=== PATIENT | female | born 1950 | race African-American/Black ===

== ENCOUNTER → 2020-12-11 | Outpatient (CLI) | payer OTHER ==
[2016-04-02 12:04] VITALS: BP 223/92
--- NOTE | 2020-12-11 12:39 | KCIC ---
EXAM: Chest, 2 views. HISTORY: Wheezing. COMPARISON: None. FINDINGS: 2 views of the chest are obtained. There is mild central interstitial prominence without fr ank congestion or consolidated infiltrate. There is cardiomegaly. There is no pleural effusion or pne umothorax. IMPRESSION: Cardiomegaly. Electronically signed by: Janet Harley MD (12/11/2020 12:36 PM) [id number]
== END ==
LOC: KCIC 10:35
PROVIDERS: ATTEND Family Medicine
DX: I51.7 Cardiomegaly (principal); R06.2 Wheezing
CPT/HCPCS: 71046

== ENCOUNTER → 2020-12-18 | Outpatient (CLI) | payer OTHER ==
[2016-04-02 12:04] VITALS: BP 223/92
--- NOTE | 2020-12-18 14:17 | KCIC ---
Bilateral digital screening mammograms: Reason for examination: Routine screening. Comparison is made to previous studies dated 04/24/2015 and 04/09/2013. Interpretation is made with the benefit of CAD. The skin and nipples show no abnormalities. No abnormal lymph nodes are seen. The breast parenchyma i s predominantly fatty. (Breast density: Category A.) There are some clustered calcifications seen pos terior medially in the left breast seen on cc view only. Further evaluation with coned compression ma gnification views in CC and true lateral projections is recommended. There are no other dominant mass es, suspicious calcifications or architectural distortions. Impression: Calcifications seen posterior medially in the left breast on cc view only. Recommend further evaluati on with coned compression magnification views in CC and true lateral projections. BI-RADS Category 0: Incomplete. Needs additional imaging evaluation. "Our facility is accredited by the [employer] Mammography [employer]." This patient's information has been entered into a reminder system for the patient to be notified wit h the results of her examination and a target date for the next mammogram. Electronically signed by: Lamar Henderson MD (12/18/2020 2:14 PM) [email or web address]
== END ==
LOC: KCIC MAMMO 10:10
PROVIDERS: ATTEND Family Medicine
DX: Z12.31 Encounter for screening mammogram for malignant neoplasm of breast (principal)
CPT/HCPCS: 77067

== ENCOUNTER → 2020-12-31 | Outpatient (CLI) | payer OTHER ==
[2016-04-02 12:04] VITALS: BP 223/92
--- NOTE | 2020-12-31 14:18 | KCIC ---
Left breast diagnostic digital mammograms: Reason for examination: Calcifications on screening mammogram. Comparison is made to mammographic exam dated 12/18/2020. True lateral view of the left breast and cone compression magnification views in CC and oblique proje ctions were obtained of the left breast. A cluster of calcifications is present in the left breast in the central 9:00 position 12 cm from the nipple. Further evaluation with stereotactic biopsy is recommended. IMPRESSION: Clustered calcifications in the central 9:00 position of the left breast 12 cm from the nipple. Furth er evaluation with stereotactic biopsy is recommended. BI-RADS Category 4: Suspicious. These findings have been discussed with the patient and the medical transport specialist for Dr. Patterson was notifi ed about these findings by voicemail on 12/31/2020 at 1415. "Our facility is accredited by the [employer]ammography [employer]." This patient's information has been entered into a reminder system for the patient to be notified wit h the results of her examination and a target date for the next mammogram. Electronically signed by: Lamar Henderson MD (12/31/2020 2:15 PM) [email or web address]
== END ==
LOC: KCIC MAMMO 12:55
PROVIDERS: ATTEND Family Medicine
DX: R92.1 Mammographic calcification found on diagnostic imaging of breast (principal)
CPT/HCPCS: 77065

== ENCOUNTER → 2021-02-03 | Outpatient (CLI) | payer OTHER ==
[2016-04-02 12:04] VITALS: BP 223/92
--- NOTE | 2021-02-03 17:51 | KCIC ---
Procedure: Targeted left breast ultrasound INDICATION: Mammogram shows a cluster of calcifications in the central/9:00 position of the left diane st at posterior depth. Patient has declined biopsy at this time. The area of interest on mammogram, central to 9:00 region of the left breast was evaluated. The axill a was imaged. No suspicious breast mass is seen. The no areas of abnormal shadowing identified in the area of group ed calcifications seen on mammogram. There is no left axillary adenopathy. IMPRESSION: No sonographic correlate is seen for the grouped calcifications in the central/9:00 posit ion of the left breast at posterior depth on mammogram. The calcifications remain of concern. Stereotactically guided biopsy is recommended. Results were discussed the patient on the phone by myself and the stereotactic biopsy procedure was e xplained to her. She will notify us if she agrees to stereotactic biopsy. ASSESSMENT: BI-RADS 4. Suspicious for possible malignancy. RECOMMENDATION: Stereotactic guided biopsy of the left breast. If stereotactically guided biopsy is not elected at this time, six-month follow-up of diagnostic left mammogram is recommended Electronically signed by: Batsheva Massey MD (02/03/2021 5:49 PM) [email or web address]
== END ==
LOC: KCIC US 12:54
PROVIDERS: ATTEND Family Medicine
DX: R92.8 Other abnormal and inconclusive findings on diagnostic imaging of breast (principal)
CPT/HCPCS: 76641

== ENCOUNTER → 2021-05-20 | Outpatient (CLI) | payer OTHER ==
[2016-04-02 12:04] VITALS: BP 223/92
[~2021-05-20] MED LIST: LIDOCAINE 1% Multi-Dose 20 ML VIAL. INJ ONE; LIDOCAINE 1% Multi-Dose 20 ML VIAL. ONE; LIDOCAINE 2%/EPI 1:100,000 20 ML VIAL. INJ ONE
--- NOTE | 2021-05-20 14:03 | RAD ---
EXAM: Stereotactic left breast biopsy; specimen radiograph; post-biopsy clip placement; unilateral po st-biopsy mammogram. HISTORY: 70-year-old female presents for stereotactic biopsy of microcalcifications within the left b reast demonstrated on a mammogram performed 12/31/2020. TECHNIQUE AND FINDINGS: The procedure and its risks and benefits were discussed with the patient. Ris ks discussed included, but were not limited to, pain, infection, bleeding and need for repeat biopsy. The patient provided verbal and written consent. A timeout was performed. The patient's left breast was placed in craniocaudal compression.Images were obtained and the calcifi cations of interest were localized using stereotaxis. The skin overlying this region was then sterile ly prepped and infiltrated with a few cc 1% lidocaine for local anesthesia. Deeper soft tissue anesth esia was administered with epinephrine in 1% lidocaine. A small skin incision was made and the biopsy device was advanced and appropriate positioning was confirmed with additional images. Subsequently, multiple core biopsy samples were obtained with vacuum assistance. A plain radiograph o f the specimen was obtained, demonstrating inclusion of clustered calcifications. Then, a post-biospy clip was advanced to the site of biopsy using the same guidance technique. A sterile bandage was pl aced, and the patient was transferred to the mammography suite for craniocaudal and mediolateral obli que views. The mammogram was interpreted at a separate workstation. This demonstrates the biopsy clip anterior and superior to the initial calcifications of interest. Therefore, the patient's left breast was repositioned in the mediolateral projection and additional i mages were obtained to localize additional calcifications of concern. Using the same technique, multi ple core samples of the calcifications were obtained. A specimen radiograph demonstrates inclusion of calcifications of interest. A second biopsy clip was placed. A postbiopsy mammogram was obtained and interpreted separate workstation. The post plasty mammogram d emonstrates the second biopsy clip several centimeters medial to the biopsy bed. The difference in bi opsy clip positioning compared to the biopsy bed cyst likely due to clip migration within significant redundant breast tissue following removal of the breast from compression. Given inclusion of significant calcifications of interest within the specimens, the biopsy was comple amparo and specimens were submitted for analysis. The patient tolerated the procedure without difficulty and was discharged to home in stable condition with post-biospy care instructions. IMPRESSION: 1. Stereotactic biospy of clustered microcalcifications within the posterior 9:00 position of the lef t breast. Note is made that two separate attempts to include the microcalcifications of interest were performed, with successful inclusion of calcifications of interest within the biopsy specimen. Howev er, there was significant biopsy clip migration from the biopsy bed on both attempts. This is due to breast parenchymal redundancy following decompression. If needle localization for surgical excision o r lumpectomy is indicated based on pathology results, localization of the residual calcifications wit hin the biopsy bed rather than targeted to the biopsy clips should be performed. 2. An addendum to this report will be submitted when pathology results are available. Electronically signed by: Janet Harley MD (05/20/2021 2:01 PM) [id number]
--- NOTE | 2021-05-21 18:11 | PATHOLOGY ---
[facility] Accession Number: [id number] . 01 Material submitted: . PART A: breast - LEFT BREAST STEREOTACTIC. Modifiers: left PART B: breast - LEFT BREAST CALCIFICATIONS. Modifiers: left . 02 Diagnosis: A. Breast tissue, left breast stereotactic biopsy #1: - Fatty atrophic breast tissue showing focal mild stromal fibrosis and rare microcalcification. . B. 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 SEE COMMENT. - Fatty atrophic breast tissue showing focal mild stromal fibrosis. LBQ 05/21/2021 1658 Local . 02 Comment: Sections of the left breast stereotactic biopsy #2 reveal one and perhaps two foci of ductal carcinoma in situ, low to intermediate grade, cribriform and micropapillary type. The largest focus measures 3 mm in greatest dimension. There are associated calcifications. There is no evidence of invasive carcinoma. Breast prognostic studies (ER and AK) will be obtained on B3, the results of which will be reported separately. The case is also examined by Dr. Gage, who concurs with the diagnosis on 05/21/21. (JPM/db; 05/21/2021) . 02 Electronically signed: . Toro Walden MD, Pathologist NPI- [id number] . 01 Gross description: . A. The specimen is received in formalin, labeled "Leslie Farris, left breast calcifications". Received within a plastic cassette are multiple needle cores of fibrofatty tissue measuring 2.6 x 2.6 x 0.6 cm in aggregate dimensions. The specimen is transferred and entirely submitted in cassettes A1 through A3. The cold ischemic time is 9 minutes. The total formalin fixation time is 10 hours and 36 minutes. . B. The specimen is received in formalin, labeled "Leslie Farris, left breast tissue". Received within a plastic cassette are multiple needle cores of fibrofatty tissue measuring 3.2 x 2.6 x 0.6 cm in aggregate dimensions. The specimen is transferred and entirely submitted in cassettes B1 through B3. The cold ischemic time is 10 minutes. The total formalin fixation time is 9 hours. (CAA; 05/20/2021) QAC/QAC 05/21/2021 [facility] Local . 02 Pathologist provided ICD-10: N60.32, D05.12, N64.89 . 02 CPT . 502001, 577071 Specimen Comment: A courtesy copy of this report has been sent to [phone], [phone] Specimen Comment: [id number], Specimen Comment: Report sent to , DR NEVILLE / DR ORTEGA Specimen Comment: A duplicate report has been generated due to demographic updates. Performed at: 01 [facility] [address], [place] [id number] MD Osito Vilchis MD Phone: [phone] Performed at: 02 [facility] [address], [place] [id number] MD Toro Walden MD Phone: [phone]
== END | disposition home or self-care (01) ==
LOC: MAMMO 08:53
PROVIDERS: ATTEND Surgery
DX: R92.8 Other abnormal and inconclusive findings on diagnostic imaging of breast (principal); N60.32 Fibrosclerosis of left breast; N64.89 Other specified disorders of breast; D05.12 Intraductal carcinoma in situ of left breast
CPT/HCPCS: 19081; 19082; 77065; J3490

== ENCOUNTER → 2021-06-26 | Outpatient (CLI) | payer OTHER ==
[2016-04-02 12:04] VITALS: BP 223/92
[~2021-06-26] MED LIST changes: +AMLO-187 PO; +ATOR20TA58 PO; +EMPA10TA3 PO; +FURO20TA3 PO; +HYDR-2761 PO; +HYDR100T24 PO; -LIDOCAINE 1% Multi-Dose 20 ML VIAL. INJ ONE; -LIDOCAINE 1% Multi-Dose 20 ML VIAL. ONE; -LIDOCAINE 2%/EPI 1:100,000 20 ML VIAL. INJ ONE; +SPIR25TA5 PO; +VENTOLIN HFA18 GM INH
== END ==
LOC: LAB 13:08
PROVIDERS: ATTEND Surgery
DX: Z01.812 Encounter for preprocedural laboratory examination (principal); Z20.822 Contact with and (suspected) exposure to COVID-19
CPT/HCPCS: U0003

== ENCOUNTER 2021-06-29 07:16 | Observation (INO) | payer OTHER ==
[~2021-06-29] VITALS: Ht 165.1 cm; Wt 105.0 kg
[2021-06-29] VITALS (9 sets, daily range): BP systolic 116–127; BP diastolic 48–70
[~2021-06-29 07:16] MED LIST changes: -HYDR-2761 PO; +HYDROmorphone 2 MG/ML INJ. IVP PRN; +IV RINGERS,LACTATED 1000ML 1,000 ML IV SCH; +MORPHINE SULFATE 2 MG/ML INJ. IVP PRN; +PROCHLORPERAZINE 10 MG/2 ML VIAL. IVP PRN; +fentaNYL PF VIAL 100 MCG/2 ML VIAL IVP PRN
[2021-06-29] MEDS ORDERED: INSULIN LISPRO 100 UNIT/ML 3ML VIAL for OP,RR ONLY. SQ PRN (08:00)
[2021-06-29] MEDS ORDERED: DEXMEDETOMIDINE 200 MCG/2 ML VIAL. IV ONE (08:15)
[2021-06-29 08:28] LABS: CALCIUM 10.6 mg/dL (8.5-10.1); GFR 29.7; POTASSIUM 3.9 mmol/L (3.5-5.1)
[2021-06-29] MEDS ORDERED: ROCURONIUM 50 MG/5 ML VIAL. ONE (08:28)
[2021-06-29] MEDS ORDERED: fentaNYL PF VIAL 100 MCG/2 ML VIAL ONE (08:29)
[2021-06-29] MEDS ORDERED: PROPOFOL 10 MG/ML (20ML) VIAL. IV ONE (08:30)
[2021-06-29] MEDS ORDERED: GLYCOPYRROLATE 1 MG/5 ML VIAL. ONE (08:30)
[2021-06-29] MEDS ORDERED: NEOSTIGMINE METHYLSULFATE 5 MG/5 ML SYRINGE. ONE (08:30)
[2021-06-29] MEDS ORDERED: LIDOCAINE 2% PF 5 ML VIAL. ONE (08:30)
[2021-06-29] MEDS ORDERED: FAMOTIDINE 20 MG/2 ML VIAL ONE (08:31)
[2021-06-29] MEDS ORDERED: ONDANSETRON PF 4 MG/2 ML VIAL. ONE (08:31)
[2021-06-29] MEDS ORDERED: DEXAMETHASONE SOD PHOS 4 MG/ML VIAL ONE (08:31)
[2021-06-29] MEDS ORDERED: SEVOFLURANE 61 TO 120 MINUTES. IH ONE (08:58)
--- NOTE | 2021-06-29 09:05 | RAD ---
EXAM: Left breast lymphoscintigraphy. HISTORY: 71-year-old female with a history of left breast ductal carcinoma in situ presents for senti liudmila node injection prior to mastectomy and lymph node dissection. TECHNIQUE: The risks of the procedure discussed with the patient and written and verbal consent was o btained. A timeout was performed. The skin of the anterior left breast was sterilely prepped and 1.0 mCi technetium 99m lymphoseek was injected intradermally in a periareolar distribution. No images wer e obtained. IMPRESSION: Left breast lymphoscintigraphy for sentinel node biopsy. Electronically signed by: Janet Harley MD (06/29/2021 9:03 AM) [id number]
[2021-06-29] MEDS ORDERED: ISOSULFAN BLUE 1% 50 MG/5 ML VIAL. SQ ONE (10:10)
[2021-06-29] MEDS ORDERED: CEFAZOLIN 2 GM IV ONE (10:24)
[2021-06-29] MEDS ORDERED: 0.9 % SODIUM CHLORIDE 10 ML DISP.SYRIN. IV PRN (12:45)
[2021-06-29] MEDS ORDERED: NALOXONE 0.4 MG/ML VIAL. IV PRN (12:45)
[2021-06-29] MEDS ORDERED: ONDANSETRON PF 4 MG/2 ML VIAL. IVP PRN (12:45)
[2021-06-29] MEDS ORDERED: IV NORMAL SALINE 1000ML BAG 1,000 ML IV SCH (12:45)
[2021-06-29] MEDS ORDERED: HYDROmorphone 2 MG/ML INJ. IV PRN (12:45)
[2021-06-29] MEDS ORDERED: HYDROcodone/APAP 5/325MG 1 TAB TABLET PO PRN ×2 (12:45)
--- NOTE | 2021-06-29 12:50 | PDOC4 ---
Operative Note Operative Note Operative Note: Preoperative Diagnosis: Left breast ductal carcinoma in situ Postoperative Diagnosis: Same Procedure: Left simple mastectomy, sentinel lymph node biopsy Surgeon: Dhruv Security Intern: Les Cullen MS 4 Anesthesia: General EBL: 75 mL Specimen: Left breast stitch at 12:00 to pathology, left axillary sentinel lymph node to pathology Drains: 19 [place] SYDNEE drain to left chest wall Complications: None Indication: The patient is a 71-year-old female who was recently found on a core needle biopsy to have ductal carcinoma in situ of left breast. She will require definitive surgical treatment. In reviewing options she strongly prefers a complete mastectomy. We plan to incorporate a sentinel lymph node. The risks of surgery were discussed which include bleeding, infection, wound healing problems, pain, scar tissue, anesthetic risk, potential need for additional surgery procedure. She understands and would like to proceed. Description: The patient initially went to x-ray where she underwent injection of technetium sulfur colloid. She was then taken to the operating room and placed supine on the operating table. General anesthesia was performed. The left breast and axilla were prepped with ChloraPrep and draped in a standard surgical manner. 5 mL of Lymphazurin were injected deep to the nipple areolar complex. Several minutes were allowed to elapse. An elliptical tracing was made around the nipple areolar complex extending from the medial chest to the axilla. With a scalpel an incision was made along the superior tracing. Beginning in the lateral aspect we directed the dissection toward the axillary tissues. There was no marked nuclear uptake that was identified. There was however a blue staining lymph node that was seen. This was harvested from the surrounding tissues and sent to pathology. Frozen section showed no evidence of metastatic disease. We then proceeded with the mastectomy. We extended the incision along the elliptical tracing. The superior flap was developed initially the skin from the breast parenchyma. The dissection was carried to the level just below the clavicle. In a similar manner the inferior flap was developed and the dissection included the inframammary fold. In a medial to lateral fashion the breast was taken off of the chest wall with cautery. Several small blood vessels were readily controlled with cautery. The breast was then fully excised and marked with a silk suture at the 12 o'clock position. Specimen was then sent to pathology. Hemostasis was good. The subcutaneous tissue was approximated with 3-0 Vicryl. The skin was closed with 4 Monocryl and a sterile dressing was applied. The patient tolerated the procedure well and was sent to the recovery room in stable condition. At the end of the case all counts were correct. MANUELA SAWANT MD Jun 29, 2021 12:50
[2021-06-29] MEDS: IV 1/2 NORMAL SALINE 1,000 ML IV SCH ×2 (13:51→22:45)
[2021-06-29] MEDS: FUROSEMIDE 20 MG TABLET PO SCH (14:00)
--- NOTE | 2021-06-29 14:15 | NUR ---
received from recovery. metallurgical specialist strength are equal and strong. she has good sensation motion and pulses bilateral arms. dressing to left breast and the Left axilla is clean dry and intact. SYDNEE drain emptied of serosanguineous drainage. denies need for pain med at this time.
[2021-06-29] MEDS ORDERED: ATORVASTATIN CALCIUM 20 MG TABLET PO SCH (21:00)
[2021-06-30 03:00] VITALS: BP 129/58
[2021-06-30] MEDS ORDERED: EMPAGLIFLOZIN 10 MG TABLET. PO SCH (06:00)
[2021-06-30 06:50] VITALS: BP 137/54
[2021-06-30] MEDS: IV 1/2 NORMAL SALINE 1,000 ML IV SCH (08:45)
[2021-06-30] MEDS: FUROSEMIDE 20 MG TABLET PO SCH ×2 (08:52→13:32)
[2021-06-30 08:53] VITALS: BP 125/51
[2021-06-30] MEDS ORDERED: SPIRONOLACTONE 25 MG TABLET PO SCH (09:00)
--- NOTE | 2021-06-30 10:00 | NUR ---
Doing well this am. Anxious to go home today. Demonstrated pt how to empty SYDNEE drain. Verbalized understanding. Cont. monitored.
[2021-06-30 12:32] VITALS: BP 133/58
--- NOTE | 2021-06-30 12:44 | PDOC ---
PROGRESS NOTES Date of Service DATE: 06/30/21 TIME: 12:43 Subjective Subjective doing well Objective Objective Vital Signs Date Time Temp Pulse Resp B/P (MAP) Pulse Ox O2 Delivery O2 Flow Rate FiO2 06/30/21 12:32 98.7 58 20 133/58 (83) Room Air 98.7 06/30/21 06:50 89 06/29/21 13:28 10 Intake and Output 06/30/21 07:00 Intake Total 1520 ml Output Total 975 ml Balance 545 ml Intake Oral 420 ml IV Total 1100 ml Output Urine Total 550 ml Drainage Total 350 ml Estimated Blood Loss 75 ml Physical Exam Physical Exam dressing clean and dry, drain with serosang fluid Plan Plan of Care Discharge Comment Review of Relevant I have reviewed the following items marcus (where applicable) has been applied. Labs Laboratory Tests Test 06/29/21 07:30 06/29/21 07:55 06/29/21 08:18 06/29/21 13:01 POC SARS CoV-2 Antigen Negative (NEGATIVE) Sodium Level 136 mmol/L (136-145) Potassium Level 3.9 mmol/L (3.5-5.1) Chloride Level 97 mmol/L (98-107) Carbon Dioxide Level 23 mmol/L (21-32) Anion Gap 16 (6-14) Blood Urea Nitrogen 36 mg/dL (7-20) Creatinine 2.0 mg/dL (0.6-1.0) Estimated GFR (Cockcroft-Gault) 29.7 Glucose Level 97 mg/dL (70-99) Calcium Level 10.6 mg/dL (8.5-10.1) Glucose (Fingerstick) 95 mg/dL (70-99) 87 mg/dL (70-99) Test 06/29/21 16:45 06/29/21 20:10 06/30/21 06:37 06/30/21 12:36 Glucose (Fingerstick) 143 mg/dL (70-99) 183 mg/dL (70-99) 154 mg/dL (70-99) 152 mg/dL (70-99) Laboratory Tests Test 06/29/21 13:01 06/29/21 16:45 06/29/21 20:10 06/30/21 06:37 Glucose (Fingerstick) 87 mg/dL (70-99) 143 mg/dL (70-99) 183 mg/dL (70-99) 154 mg/dL (70-99) Test 06/30/21 12:36 Glucose (Fingerstick) 152 mg/dL (70-99) Medications Current Medications Fentanyl Citrate (Fentanyl 2ml Vial) 25 mcg PRN Q5MIN PRN IVP MILD PAIN 1-3; Start 06/29/21 at 06:00; Stop 06/30/21 at 05:59; Status DC Fentanyl Citrate (Fentanyl 2ml Vial) 50 mcg PRN Q5MIN PRN IVP MODERATE PAIN 4- 6; Start 06/29/21 at 06:00; Stop 06/30/21 at 05:59; Status DC Morphine Sulfate (Morphine Sulfate) 1 mg PRN Q10MIN PRN IVP SEVERE PAIN 7-10; Start 06/29/21 at 06:00; Stop 06/30/21 at 05:59; Status DC Ringer's Solution 1,000 ml @ 30 mls/hr Q24H IV Last administered on 06/29/21at 06:00; Start 06/29/21 at 06:00; Stop 06/29/21 at 17:59; Status DC Hydromorphone HCl (Dilaudid) 0.5 mg PRN Q10MIN PRN IVP SEVERE PAIN 7-10, 2nd CHOICE; Start 06/29/21 at 06:00; Stop 06/30/21 at 05:59; Status DC Prochlorperazine Edisylate (Compazine) 5 mg PACU PRN PRN IVP NAUSEA, MRX1; Start 06/29/21 at 06:00; Stop 06/30/21 at 05:59; Status DC Cefazolin Sodium/ Dextrose 50 ml @ 100 mls/hr 1X PREOP PRN IV PRIOR TO P ROCEDURE; Start 06/29/21 at 06:00; Stop 06/29/21 at 18:00; Status DC Insulin Human Lispro (HumaLOG VIAL for OP,RR ONLY) 0-10 units PRN Q1HR PRN SQ PER PROTOCOL; Start 06/29/21 at 08:00; Stop 06/30/21 at 07:59; Status DC Dexmedetomidine HCl (Precedex) 200 mcg 1X ONCE IV ; Start 06/29/21 at 08:15; Stop 06/29/21 at 08:16; Status DC Rocuronium [place] (Zemuron) 50 mg STK-MED ONCE .ROUTE ; Start 06/29/21 at 08:28; Stop 06/29/21 at 08:29; Status DC Fentanyl Citrate (Fentanyl 2ml Vial) 100 mcg STK-MED ONCE .ROUTE ; Start 06/29/21 at 08:29; Stop 06/29/21 at 08:29; Status DC Neostigmine [place] (Neostigmine Methylsulfate) 5 mg STK-MED ONCE .ROUTE ; Start 06/29/21 at 08:30; Stop 06/29/21 at 08:30; Status DC Glycopyrrolate (Robinul) 1 mg STK-MED ONCE .ROUTE ; Start 06/29/21 at 08:30; Stop 06/29/21 at 08:30; Status DC Propofol (Diprivan) 200 mg STK-MED ONCE IV ; Start 06/29/21 at 08:30; Stop 06/29/21 at 08:31; Status DC Lidocaine HCl (Lidocaine Pf 2% Vial) 5 ml STK-MED ONCE .ROUTE ; Start 06/29/21 at 08:30; Stop 06/29/21 at 08:31; Status DC Ondansetron HCl (Zofran) 4 mg STK-MED ONCE .ROUTE ; Start 06/29/21 at 08:31; Stop 06/29/21 at 08:31; Status DC Famotidine (Pepcid Vial) 20 mg STK-MED ONCE .ROUTE ; Start 06/29/21 at 08:31; Stop 06/29/21 at 08:31; Status DC Dexamethasone Sodium Phosphate (Decadron) 4 mg STK-MED ONCE .ROUTE ; Start 06/29/21 at 08:31; Stop 06/29/21 at 08:31; Status DC Sevoflurane (Ultane) 60 ml STK-MED ONCE IH ; Start 06/29/21 at 08:58; Stop 06/29/21 at 08:58; Status DC Isosulfan Blue (Lymphazurin Blue) 50 mg STK-MED ONCE SQ Last administered on 06/29/21at 11:08; Start 06/29/21 at 10:10; Stop 06/29/21 at 10:11; Status DC Cefazolin Sodium/ Dextrose 100 ml @ As Directed STK-MED ONCE IV ; Start 06/29/21 at 10:24; Stop 06/29/21 at 10:24; Status DC Sodium Chloride (Normal Saline Flush) 3 ml QSHIFT PRN IV AFTER MEDS AND BLOOD DRAWS; Start 06/29/21 at 12:45 Sodium Chloride 1,000 ml @ 100 mls/hr Q10H IV Last administered on 06/29/21at 13:51; Start 06/29/21 at 12:45 Acetaminophen/ Hydrocodone Bitart (Lortab 5/325) 1 tab PRN Q4HRS PRN PO MILD PAIN 1-3; Start 06/29/21 at 12:45 Acetaminophen/ Hydrocodone Bitart (Lortab 5/325) 2 tab PRN Q4HRS PRN PO MODERATE PAIN, SEVERE PAIN; Start 06/29/21 at 12:45 Naloxone HCl (Narcan) 0.4 mg PRN Q2MIN PRN IV SEE INSTRUCTIONS; Start 06/29/21 at 12:45 Sodium Chloride 1,000 ml @ 25 mls/hr Q24H IV ; Start 06/29/21 at 12:45; Stop 06/30/21 at 02:07; Status DC Hydromorphone HCl (Dilaudid) 0.2 mg PRN Q1HR PRN IV PAIN Last administered on 06/29/21at 16:41; Start 06/29/21 at 12:45 Ondansetron HCl (Zofran) 4 mg PRN Q6HRS PRN IVP NAUESA, 1ST CHOICE; Start 06/29/21 at 12:45 Amlodipine Besylate (Norvasc) 10 mg DAILY PO ; Start 06/30/21 at 09:00 Atorvastatin Calcium (Lipitor) 20 mg HS PO Last administered on 06/29/21at 21:43; Start 06/29/21 at 21:00 Empaglifozin (Jardiance) 10 mg DAILY06 PO Last administered on 06/30/21at 08:49; Start 06/30/21 at 06:00 Furosemide (Lasix) 20 mg BID92 PO Last administered on 06/30/21at 08:52; Start 06/29/21 at 14:00 Spironolactone (Aldactone) 25 mg DAILY PO Last administered on 06/30/21at 08:50; Start 06/30/21 at 09:00 Hydralazine HCl (Apresoline) 100 mg TID PO Last administered on 06/30/21at 08:52; Start 06/29/21 at 14:00 Active Scripts Active Reported Ventolin Hfa Inhaler (Albuterol Sulfate) 18 Gm Hfa.aer.ad 2 Puff INH Q4HRS PRN Amlodipine Besylate 10 Mg Tablet 10 Mg PO DAILY Hydralazine Hcl 100 Mg Tablet 1 Tab PO TID Jardiance (Empaglifozin) 10 Mg Tablet 10 Mg PO DAILY06 Furosemide 20 Mg Tablet 20 Mg PO BID Atorvastatin Calcium 20 Mg Tablet 20 Mg PO HS Spironolactone 25 Mg Tablet 1 Tab PO DAILY Vitals/I & O Vital Sign - Last 24 Hours 06/29/21 06/29/21 06/29/21 06/29/21 12:58 13:13 13:28 13:43 Pulse 67 65 67 69 Resp 20 20 20 20 B/P (MAP) 119/56 116/60 112/45 117/52 Pulse Ox 100 100 100 91 O2 Delivery Simple Mask Simple Mask Room Air O2 Flow Rate 10 10 10 06/29/21 06/29/21 06/29/21 06/29/21 13:58 14:00 14:15 14:30 Temp 97.0 98.0 97.0 98.0 Pulse 67 61 70 Resp 20 18 B/P (MAP) 105/53 125/62 127/70 (89) 116/48 (70) Pulse Ox 92 95 O2 Delivery Room Air Room Air Room Air 06/29/21 06/29/21 06/29/21 06/29/21 14:35 14:45 15:00 15:30 Temp 97.6 97.6 97.6 97.6 Pulse 63 66 Resp 16 18 B/P (MAP) 120/62 (81) 126/54 (78) 124/53 (76) Pulse Ox 94 95 O2 Delivery Room Air Room Air Room Air 06/29/21 06/29/21 06/29/21 06/29/21 16:00 16:41 17:15 18:35 Temp 97.2 97.1 97.2 97.1 Pulse 63 61 Resp 18 20 16 20 B/P (MAP) 119/54 (75) 125/62 (83) Pulse Ox 96 97 97 O2 Delivery Room Air Room Air Room Air 06/29/21 06/29/21 06/29/2106/30/22 21:00 21:46 23:00 03:00 Temp 97.9 98.7 97.4 97.9 98.7 97.4 Pulse 69 69 63 60 Resp 16 18 18 B/P (MAP) 123/57 123/57 (79) 126/58 (80) 129/58 (81) Pulse Ox 94 90 91 O2 Delivery Room Air Room Air Room Air 06/30/21 06/30/21 06/30/21 06/30/21 06:50 07:35 08:52 08:53 Temp 98.0 98.0 Pulse 63 59 59 Resp 18 16 B/P (MAP) 137/54 (81) 125/51 125/51 (75) Pulse Ox 89 O2 Delivery Room Air Room Air Room Air 06/30/21 06/30/21 11:00 12:32 Temp 98.7 98.7 Pulse 58 Resp 20 B/P (MAP) 133/58 (83) O2 Delivery Room Air Room Air Intake and Output 06/29/21 06/29/21 06/30/21 15:00 23:00 07:00 Intake Total 1100 ml 420 ml Output Total 225 ml 460 ml 290 ml Balance 875 ml -40 ml -290 ml Justifications for Admission Other Justification MANUELA SAWANT MD Jun 30, 2021 12:44
[2021-06-30] MEDS ORDERED: HYDR-2761 PO (12:45)
--- NOTE | 2021-06-30 12:47 | DISCH ---
DISCHARGE INSTRUCTIONS Condition on Discharge Condition on Discharge: Stable Activity After Discharge Activity Instructions for Disc: Activity as tolerated Diet after Discharge Diet after Discharge: Regular Wound Incision Care Wound/Incision Care: Other, see below (keep dressing clean and dry; record drain output twice daily) Follow-Up Follow up with: Dr Sawant in office in 1 week, call for appt [phone] MANUELA SAWANT MD Jun 30, 2021 12:47
--- NOTE | 2021-06-30 12:49 | PDOC3 ---
Discharge Summary Visit Information Date of Admission: Jun 29, 2021 Date of Discharge: Jun 30, 2021 Admitting Diagnosis: Left breast DCIS Brief Hospital Course Allergies Allergies Coded Allergies Type Severity Reaction Last Updated Verified nickel Allergy Intermediate Swelling 06/30/21 Yes DELL Inhibitors Adverse Reaction Intermediate 06/25/21 Yes Vital Signs Vital Signs Date Time Temp Pulse Resp B/P (MAP) Pulse Ox O2 Delivery O2 Flow Rate FiO2 06/30/21 12:32 98.7 58 20 133/58 (83) Room Air 98.7 06/30/21 06:50 89 06/29/21 13:28 10 Lab Results Laboratory Tests Test 06/29/21 07:30 06/29/21 07:55 06/29/21 08:18 06/29/21 13:01 POC SARS CoV-2 Antigen Negative (NEGATIVE) Sodium Level 136 mmol/L (136-145) Potassium Level 3.9 mmol/L (3.5-5.1) Chloride Level 97 mmol/L (98-107) Carbon Dioxide Level 23 mmol/L (21-32) Anion Gap 16 (6-14) Blood Urea Nitrogen 36 mg/dL (7-20) Creatinine 2.0 mg/dL (0.6-1.0) Estimated GFR (Cockcroft-Gault) 29.7 Glucose Level 97 mg/dL (70-99) Calcium Level 10.6 mg/dL (8.5-10.1) Glucose (Fingerstick) 95 mg/dL (70-99) 87 mg/dL (70-99) Test 06/29/21 16:45 06/29/21 20:10 06/30/21 06:37 06/30/21 12:36 Glucose (Fingerstick) 143 mg/dL (70-99) 183 mg/dL (70-99) 154 mg/dL (70-99) 152 mg/dL (70-99) Laboratory Tests Test 06/29/21 13:01 06/29/21 16:45 06/29/21 20:10 06/30/21 06:37 Glucose (Fingerstick) 87 mg/dL (70-99) 143 mg/dL (70-99) 183 mg/dL (70-99) 154 mg/dL (70-99) Test 06/30/21 12:36 Glucose (Fingerstick) 152 mg/dL (70-99) Brief Hospital Course Ms. Farris is a 71 old female who presented with left breast DCIS. She underwent surgical treatment and was stable for discharge on POD 1. Discharge Information Condition at Discharge: Improved Follow Up: Weeks (2 weeks) Disposition/Orders: D/C to Home Scheduled Amlodipine Besylate (Amlodipine Besylate) 10 Mg Tablet, 10 MG PO DAILY for CHF, (Reported) Entered as Reported by: JOSEE ALARCON on 06/25/211552 Last Taken: Unknown Dose on 06/29/21 0600 Last Action: Continued on 06/29/21 1252 by MANUELA SAWANT Atorvastatin Calcium (Atorvastatin Calcium) 20 Mg Tablet, 20 MG PO HS for FOR CHOLESTEROL, #30 Ref 0 (Reported) Entered as Reported by: JOSEE ALARCON on 06/25/211552 Last Taken: Unknown Dose on 06/28/21 1800 Last Action: Continued on 06/29/21 1252 by MANUELA SAWANT Empagliflozin (Jardiance) 10 Mg Tablet, 10 MG PO DAILY06 for DIABETES, (Reported ) Entered as Reported by: JOSEE ALARCON on 06/25/211552 Last Taken: Unknown Dose on 06/28/21 0800 Last Action: Continued on 06/29/21 1252 by MANUELA SAWANT Furosemide (Furosemide) 20 Mg Tablet, 20 MG PO BID for DIURETIC, (Reported) Entered as Reported by: JOSEE ALARCON on 06/25/211552 Last Taken: Unknown Dose on 06/28/21 0800 Last Action: Continued on 06/29/21 1252 by MANUELA SAWANT Hydralazine Hcl (Hydralazine Hcl) 100 Mg Tablet, 1 TAB PO TID for DIURETIC, #90 Ref 5 (Reported) Entered as Reported by: JOSEE ALARCON on 06/25/211552 Last Taken: Unknown Dose on 06/28/21 1800 Last Action: Converted on 06/29/21 1252 by MANUELA SAWANT Spironolactone (Spironolactone) 25 Mg Tablet, 1 TAB PO DAILY for DIURETIC, #90 Ref 1 (Reported) Entered as Reported by: JOSEE ALARCON on 06/25/211552 Last Taken: Unknown Dose on 06/28/21 0800 Last Action: Continued on 06/29/21 1252 by MANUELA SAWANT Scheduled PRN Albuterol Sulfate (Ventolin Hfa Inhaler) 18 Gm Hfa.aer.ad, 2 PUFF INH Q4HRS PRN for ASTHMA PRN, Ref 0 (Reported) Entered as Reported by: JOSEE ALARCON on 06/25/21 1553 Last Action: HELD on 06/29/21 1252 by MANUELA SAWANT Hydrocodone Bit/Acetaminophen (Hydrocodone-Apap 5-325 ) 1 Tab Tablet, 1 TAB PO PRN Q6HRS PRN for PAIN for 7 Days, #30 Ref 0 Prescribed by: MANUELA SAWANT on 06/30/21 1246 Justicifation of Admission Dx: Justifications for Admission: Justification of Admission Dx: Yes MANUELA SAWANT MD Jun 30, 2021 12:49
[2021-06-30 13:33] VITALS: BP 133/58
--- NOTE | 2021-06-30 15:00 | NUR ---
Discharge instructions given. Answered questions and concerns. Verbalized understanding. Pt discharged home accompanied by daughter. Escorted out by w/c.
--- NOTE | 2021-07-03 18:06 | PATHOLOGY ---
[facility] Accession Number: [id number] . 01 Material submitted: . PART A: breast - LEFT SENTINEL NODE- FS. Modifiers: left PART B: breast - LEFT BREAST STITCH AT 12 O'CLOCK. Modifiers: left, 12:00 . 01 Clinical history: . BREAST CA LEFT LEFT BREAST MASTECTOMY WITH SENTINEL LYMPH NODE BIOPSY DUCTAL CARCINOMA IN SITU LEFT LEFT BREAST SIMPLE MASTECTOMY . 02 Frozen section diagnosis: . INTRAOPERATIVE CONSULTATION FOR FROZEN SECTION: (Dr. Toro Walden) . Left sentinel lymph node excisional biopsy: - Negative for tumor. . The results are reported to Dr. Bartlett in the operating room. . . FROZEN SECTION GROSS DESCRIPTION: The specimen is received fresh for intraoperative consultation and is designated, "left sentinel node". This consists of an irregular segment of yellow-red fatty tissue measuring up to 3.8 x 2.8 x 1.2 cm. Sectioning reveals an enlarged, somewhat lobulated, hoffmann-brown lymph node showing partial fatty replacement, measuring up to 2.8 cm in greatest dimension. The jessy parenchyma is focally fibrotic. A shared services representative portion of the lymph node is submitted for frozen section as FSA1. The tissue remaining from frozen section is submitted for permanent sections as A1. The remainder of the lymph node is submitted for microscopy as A2. (JPM:eliseo/pit; 06/29/2021) . . . Frozen section performed at [facility], [address] [place] [address], [place] [address]. LEAH/WILFRID . 02 Diagnosis: A. Lymph node, left sentinel lymph node excisional biopsy: - Reactive changes with focal jessy fibrosis and calcification - negative for tumor. . B. Skin and breast tissue, left breast mastectomy: - No residual ductal carcinoma in situ identified. - Previous biopsy site changes, 11-12:00 region and 8-9:00 region, showing fat necrosis, reactive fibrosis, focal hemosiderin-laden macrophages, and focal foreign body giant cell reaction. - Fibrocystic changes, focal, with components of stromal fibrosis, mild duct ectasia, and focal cystic change. - Focal microcalcifications identified associated with benign breast tissue/fibrocystic changes. (JPM:pit:db/music instructor; 07/02/2021) P 07/03/2021 1706 Local . 02 Comment: The sentinel lymph node is examined at multiple levels. Properly controlled immunoperoxidase stains for AE1/AE3 are obtained and yield the following results: . AE1/AE3 (A1): Negative for tumor. AE1/AE3 (A2): Negative for tumor. . Thus, there is a single sentinel lymph node which is negative for tumor. . Sections of the left mastectomy show previous biopsy site changes in the 11:00-12:00 region and 8:00-9:00 region. There is no residual ductal carcinoma in situ. There is no evidence of invasive mammary carcinoma. . (JPM:david; 07/03/2021) . . Special stain performed: Immunoperoxidase stains for Helicobacter on AE1/AE3 on A1 and A2 . 02 Electronically signed: . Toro Walden MD, Pathologist NPI- [id number] . 01 Gross description: . A. SEE FROZEN SECTION GROSS DESCRIPTION. . B. The specimen is received in formalin, labeled "Leslie Farris, left breast stitch at 12:00" and consists of a 1,098 g mastectomy (23.0 x 16.5 x 5.0 cm) which is surfaced with a alvarado-brown skin ellipse (26.0 x 18.2 cm) that displays a brown areola (5.3 cm in diameter) with a central everted nipple (1.5 cm in diameter). The specimen has been previously oriented with a stitch designating the 12 o'clock position. The superficial superior margin is inked green, the superficial inferior margin is inked blue and the deep margin is inked black. The deep margin displays 3 areas of disruption (ranging from 4.5 x 1.5 cm to 9.0 x 3.0 cm). Sectioning reveals, at approximately the 11 o'clock position, a alvarado-brown slightly radiating mass (mass #1, 1.5 x 0.9 x 0.7 cm) that comes to within 1.3 cm from the nearest deep margin, 1.5 cm in the superficial superior margin (green) and 9.2 cm from the superficial inferior margin (blue). Abutting mass #1 an area of fat necrosis (0.7 x 0.6 x 0.3 cm), if the fat necrosis is contiguous with mass #1 then the new dimensions of mass #1 would be 1.8 x 1.2 x 0.8 cm. Located 2.8 cm lateral to mass #1, within the upper outer quadrant at approximately the 12:00 position is an ill-defined rubbery cystic mass (mass #2, 1.4 x 0.9 x 0.9 cm) that comes to within 1.9 cm from the deep margin, 6.0 cm from the superficial inferior (blue) margin and 8.0 cm from the superficial superior (green) margin. If mass #1 and mass #2 are contiguous then the dimensions of the mass would be approximately 6.0 x 5.0 x 1.5 cm. No biopsy clips are identified in mass #1 or mass #2. Located within the lower inner quadrant at the 8:00-9:00 position, approximately 7.0 cm from mass #1 and 6.0 cm from mass #2 is a dense, fibrotic mass (mass #3, 0.9 x 0.4 x 0.4 cm) that comes to within 4.6 cm from the deep margin, 0.7 cm from the superficial superior margin (green) and 1.4 cm from the superficial inferior margin (blue). Mass #3 contains a silver metallic berenice-shaped biopsy clip. The remaining cut surfaces display approximately 10% fibrous tissue. Photographs are taken. Dipper [place] sections are submitted as follows: . B1-B2: Serially sectioned nipple, submitted on edge, entirely submitted and tissue underlying nipple, submitted en face in B2 B3: Deep margin nearest mass #1, submitted on edge, represented B4: Superficial superior margin (green) nearest mass #1, represented B5: Superficial inferior margin (blue) nearest mass #1, represented B6-B7: Mass #1, represented B8: Fat necrosis adjacent to mass #1, entirely submitted B9: Section dividing mass #1 and mass #2, represented B10: Deep margin nearest mass #2, represented B11: Superficial inferior margin (blue) nearest mass #2, represented B12: Superficial superior margin (green) nearest mass #2, represented B13-B14: Mass #2, represented B15: Superficial superior margin (green) to show proximity to mass #3, represented and to include the section containing the biopsy clip, entirely submitted B16: Superficial inferior margin (blue) nearest mass #3, represented B17: Deep margin nearest mass #3, represented B18-B19: Mass #3, represented B20: Upper inner quadrant, represented B21: Lower inner quadrant, represented B22: Lower outer quadrant, represented B23: Upper outer quadrant, represented The collection time and time placed in formalin are not provided. The approximate total time in formalin is greater than 6 and less than 72 hours. (UTE; 06/30/2021) DKA/QMS 07/02/2021 1512 Local . 02 Pathologist provided ICD-10: D05.12, N60.32, N60.42, N64.1 . 02 CPT . 535553, 829571, 809640, [id number] Specimen Comment: A courtesy copy of this report has been sent to [phone], [phone] Specimen Comment: [id number] Specimen Comment: Report sent to / DR NEVILLE Performed at: 01 [facility] [address], [place] [id number] MD Osito Vilchis MD Phone: [phone] Performed at: 02 [facility] [address] [place], [place] [id number] MD Toro Walden MD Phone: [phone]
== END 2021-06-30 15:00 | disposition home or self-care (01) ==
LOC: SURG 07:16 → 4 SOUTHEST 12:40
PROVIDERS: ADMIT Surgery; ATTEND Surgery
DX: D05.12 Intraductal carcinoma in situ of left breast (principal); Z20.822 Contact with and (suspected) exposure to COVID-19; Z79.899 Other long term (current) drug therapy; Z98.890 Other specified postprocedural states
CPT/HCPCS: 19303; 36415; 38525; 38792; 80048; 82962; 96374; A4209; A4364; A4930; A6254; A6255; A6258; A6402; A9520; G0378; G0379; J0690; J1100; J1170; J2405; J2704; J2710; J3010; J3490; Q9968; A4223; A4452